=== PATIENT | male | born 1965 | race Caucasian/White ===

== ENCOUNTER 2017-04-22 10:34 | Day surgery (SDC) | payer BC ==
[2017-04-21 10:32] VITALS: BMI 25.8
[~2017-04-22 10:34] MED LIST: LACTATED RINGERS 1,000 ML IV SCH; LIDOCAINE 1% 20 ML VIAL (10MG/ML) FOR IV START INTRADERMA PRN
[2017-04-22 10:50] VITALS: TEMP 98
[2017-04-22] MEDS ORDERED: LACTATED RINGERS 1,000 ML IV ONE (10:50)
[2017-04-22] MEDS ORDERED: PROPOFOL 10 MG/ML 20 ML VIAL IV ONE (11:52)
--- NOTE | 2017-04-22 12:06 | P.PCN ---
Date of Procedure: 04/22/17 Procedure(s) Performed: BRIEF HISTORY: Patient is a 51-year-old pleasant male, scheduled for an elective colonoscopy as a part of screening for colorectal neoplasia. PROCEDURE PERFORMED: Colonoscopy. PREOPERATIVE DIAGNOSIS: Screening for colon cancer. IV sedation per Anesthesia. PROCEDURE: After informed consent was obtained, the patient, was brought into the endoscopy unit. IV sedation was administered by Anesthesia under continuous monitoring. Digital rectal examination was normal. Initially the Olympus CF- 160 flexible video colonoscope was then inserted in the rectum, gradually advanced into the cecum without any difficulty. Careful examination was performed as the scope was gradually being withdrawn. Ileocecal valve and the appendiceal orifice were visualized and appeared normal. Prep was excellent. Mucosa of the cecum, ascending colon, transverse colon, descending colon, sigmoid colon, and rectum appeared normal. Retroflexion was performed in the rectum and no lesions were seen. The patient tolerated the procedure well. IMPRESSION: Normal-appearing colon from rectum to cecum with no evidence of colorectal neoplasia. RECOMMENDATIONS: Findings of this examination were discussed with the patient as well as his family. He was advised to have a repeat screening colonoscopy in 10 years.
[2017-04-22 12:12] VITALS: RESP 16
[2017-04-22 12:29] VITALS: BP 110/77; PULSE 71
== END 2017-04-22 12:39 | disposition home or self-care (01) ==
LOC: ORWHC2ENDO 10:34
PROVIDERS: ATTEND Internal Medicine Gastroenterology
DX: Z12.11 Encounter for screening for malignant neoplasm of colon (principal); K21.9 Gastro-esophageal reflux disease without esophagitis; Z79.899 Other long term (current) drug therapy
CPT/HCPCS: J2704; G0121